=== PATIENT | female | born 1995 | race Caucasian/White ===

== ENCOUNTER 2017-12-24 15:14 | Outpatient (CLI) | payer OTHER | END 2017-12-24 15:15 | disposition home or self-care (01) | LOC: LAB 15:14 | PROVIDERS: ATTEND Registered Nurse | DX: E04.0 Nontoxic diffuse goiter (principal) | CPT/HCPCS: 36415; 84443 ==

== ENCOUNTER 2018-01-05 13:00 | Outpatient (CLI) | payer OTHER ==
--- NOTE | 2018-01-05 15:18 | Ultrasound Report ---
Reason: NONTOXIC DIFFUSE GIOITER Procedure Date: 01/05/2018 Accession Number: [id number] / [id number] Procedure: US - Head or Neck Soft Tissue CPT Code: FULL RESULT: EXAM: THYROID ULTRASOUND EXAM DATE: 01/05/2018 01:25 PM. CLINICAL HISTORY: Enlarged thyroid gland on physical exam. COMPARISON: None. TECHNIQUE: Real time sonographic imaging of the thyroid was performed by the job recruiter. Multiple charter representative static images were saved for review. FINDINGS: THYROID GLAND: Right Lobe: 4.7 x 1.3 x 1.7 cm, volume 5.4 cc. Normal background echotexture. Right Lobe Nodules: None. Left Lobe: 4.7 x 1.0 x 1.6 cm, volume 3.9 cc. Normal background echotexture. Left Lobe Nodules: None. Isthmus: 0.3 cm AP. Isthmic Nodules: None. LYMPH NODES: Prominent bilateral sub-mandibular lymph nodes with normal fatty cristina measuring 3.1 x 0.9 x 1.7 cm on the right and 2.8 x 0.8 x 2.0 cm on the left. OTHER: None. IMPRESSION: 1. Normal thyroid gland. 2. Prominent nonenlarged bilateral submandibular lymph nodes with normal morphology. Management recommendations are based on 2015 [place] [employer] Management Guidelines for Adult Patients with Thyroid Nodules and Differentiated Thyroid Cancer. RADIA
== END 2018-01-05 13:01 | disposition home or self-care (01) ==
LOC: DI 13:00
PROVIDERS: ATTEND Registered Nurse
DX: E04.0 Nontoxic diffuse goiter (principal)
CPT/HCPCS: 76536

== ENCOUNTER 2020-11-18 07:00 | Outpatient (CLI) | payer OTHER ==
[2020-11-18 15:49] LABS: BILIRUBIN,URINE NEGATIVE (NEGATIVE); GLUCOSE, URINE (UA) NEGATIVE (NEGATIVE); KETONES,URINE (UA) NEGATIVE (NEGATIVE); LEUKOCYTE ESTERASE, URINE TRACE (NEGATIVE); NITRITE,URINE NEGATIVE (NEGATIVE); OCCULT BLOOD,URINE TRACE-INTA (NEGATIVE); PH,URINE 6.5 PH (5.0-7.5); PROTEIN,URINE NEGATIVE (NEGATIVE); UROBILINOGEN,URINE 0.2 (NORMAL) E.U./dL (NORMAL)
[2020-11-18 16:00] LABS: BACTERIA,URINE Few /HPF (None Seen); CLARITY,URINE HAZY (CLEAR); RBC,URINE 0-5 /HPF (0-5); SQUAMOUS EPITHELIAL CELL,UR MANY Squamous (<= Few)
== END 2020-11-18 23:59 | disposition home or self-care (01) ==
LOC: LAB 07:00
PROVIDERS: ATTEND Obstetrics & Gynecology
DX: Z32.01 Encounter for pregnancy test, result positive (principal)
CPT/HCPCS: 81001; 87086

== ENCOUNTER 2020-11-27 07:46 | Outpatient (CLI) | payer OTHER ==
--- NOTE | 2020-11-27 12:42 | Ultrasound Report ---
PROCEDURE: OB First Trimester w/TV INDICATIONS: POSITIVE TEST OUTSIDE/PRIOR DATING DATA: Last menstrual period (LMP): 09/27/2020. LMP-based estimated date of delivery (JAZMINE): 07/04/2021. First dating scan (date and location): Today. Estimated date of delivery (JAZMINE) from first dating scan: 07/08/2021. The below data below was generated using the LMP JAZMINE of 07/04/2021 TECHNIQUE: Real-time scanning was performed of the fetus and maternal pelvic organs, with image documentation. Endovaginal scanning was also performed to better visualize the fetus and maternal ovaries. COMPARISON: None FINDINGS: Embryo: There is a single living intrauterine . There is a pole and yolk sac measurin g 3.3 mm. [place]-rump length measures 1.7 cm corresponds to 8 weeks 1 day. Mean gestational sac diamet er is not reportedly given greater sensitivity of crown-rump length at this gestation. No significant perigestational hemorrhage. Heart rate: 169 beats per minute Measurement variability in dating: +/- 4 weeks by LMP, +/- 7 days by mean sac diameter (use before 6 weeks gestation if crown-rump length not able to be measured), +/- 5 days by crown-rump length (6-12 weeks gestation). Maternal organs: Ovaries are normal in size and appearance. There is a 1.0 cm cystic lesion likely re presenting a corpus luteal cyst within the right ovary. The cervix is closed. Nabothian cysts. IMPRESSION: Single living intrauterine with heart rate of 169 bpm measuring 8 weeks 1 day by [place] n-rump length. Estimated date of delivery of 07/04/2021. Reviewed by: Jayme Edgar DO on 11/27/2020 11:41 AM RUBENS Approved by: Jayme Edgar DO on 11/27/2020 11:41 AM RUBENS Station ID: [id number]
== END 2020-11-27 07:47 | disposition home or self-care (01) ==
LOC: DI 07:46
PROVIDERS: ATTEND Obstetrics & Gynecology
DX: Z32.01 Encounter for pregnancy test, result positive (principal)

== ENCOUNTER 2020-12-02 14:32 | Outpatient (CLI) | payer OTHER ==
[2020-12-02 20:43] LABS: BASOPHILS % (AUTO) 0.3 %; EOSINOPHILS # (AUTO) 0.1 10^3/uL (0.0-0.7); EOSINOPHILS % (AUTO) 0.7 %; HCT - HEMATOCRIT 39.3 % (37.0-47.0); HGB - HEMOGLOBIN 13.1 g/dL (12.0-16.0); LYMPHOCYTES # (AUTO) 2.7 10^3/uL (1.5-3.5); LYMPHOCYTES % (AUTO) 29.2 %; MEAN CORPUSCULAR HEMOGLOBIN 30.3 pg (27.0-31.0); MEAN CORPUSCULAR HGB CONC 33.3 g/dL (32.0-36.0); MEAN PLATELET VOLUME 9.4 fL (7.9-10.8); MONOCYTES # (AUTO) 0.6 10^3/uL (0.0-1.0); MONOCYTES % (AUTO) 6.3 %; NEUTROPHILS # (AUTO) 5.8 10^3/uL (1.5-6.6); NEUTROPHILS % (AUTO) 63.2 %; PLT - PLATELET COUNT 323 10^3/uL (130-450); RED BLOOD COUNT 4.32 10^6/uL (4.20-5.40); RED CELL DISTRIBUTION WIDTH 11.9 % (12.0-15.0); WHITE BLOOD COUNT 9.1 x10^3/uL (4.8-10.8)
[2020-12-05 17:11] LABS: HIV AG/AB 4TH GEN NON-REACTIVE (NON-REACTIVE)
[2020-12-05 19:22] LABS: HEPATITIS B SURFACE ANTIGEN NON-REACTIVE (NON-REACTIVE); HEPATITIS C ANTIBODY NON-REACTIVE (NON-REACTIVE)
== END 2020-12-02 14:33 | disposition home or self-care (01) ==
LOC: LAB.S 14:32
PROVIDERS: ATTEND Obstetrics & Gynecology
DX: Z36.89 Encounter for other specified antenatal screening (principal)
CPT/HCPCS: 36415; 85025; 86592; 86762; 86787; 86803; 86850; 86900; 86901; 87340; 87389

== ENCOUNTER 2021-02-14 16:24 | Outpatient (CLI) | payer OTHER ==
--- NOTE | 2021-02-15 14:12 | Ultrasound Report ---
PROCEDURE: OB Detailed Eval INDICATIONS: SUPERVISION OF OUTSIDE/PRIOR DATING DATA: Last menstrual period (LMP): 09/27/2020. LMP-based estimated date of delivery (JAZMINE): 07/04/2021. First dating scan (date and location): 11/27/2020. Estimated date of delivery (JAZMINE) from first dating scan: 07/08/2021. The below data below was generated using the ultrasound JAZMINE of 07/08/2021 TECHNIQUE: Real-time scanning was performed of the fetus, with image documentation and biometric measurements. Endovaginal scanning: Not performed COMPARISON: 11/27/2020 FINDINGS: General: A single living intrauterine gestation is present. Presentation: Vertex Placenta: Placental position is fundal, without previa. Amniotic fluid index: 16.5 cm, normal for gestational age. Largest pocket 5.1 cm. heart rate: 144 beats per minute. Maternal cervical canal: 4.3 cm long; normal length is 2.5 cm or more. biometrics: Biparietal diameter: 4.5 cm, 19 weeks 5 days Head circumference: 16.58 cm, 19 weeks 2 days Abdominal circumference: 14.57 cm, 19 weeks 6 days Femur length: 3.1 cm, 19 weeks 5 days Estimated gestational age from initial scan: 19 weeks 3 days. Composite gestational age from present scan: 19 weeks 3 days Estimated weight and percentile: 309 g, 63rd percentile Measurement variability in biometric dating: +/- 10 days from 12-20 weeks gestation, +/- 2 weeks from 20-30 weeks gestation, +/- 3 weeks at 30 weeks gestation or later. Anatomic survey: Neuro: Ventricles are normal at less than 10 mm. Cisterna magna is normal at 3-11 mm. Cerebellum i s normal in size and morphology. Nuchal skin fold: Normal at less than 6 mm between 14 and 20 weeks gestational age. Face: Nose and lips, facial profile are normal. Spine: Suboptimally visualized. Heart: Suboptimally visualized. Diaphragm: Diaphragm is intact. Stomach: Left-sided stomach is present. Kidneys: No hydronephrosis. Normal is less than 5 mm in 2nd trimester, less than 7 mm in 3rd trimester. Cord: 3 vessel cord has orthotopic insertion. Bladder: Normal in size. Extremities: All 4 extremities are visualized. IMPRESSION: 1. [place] living intrauterine at 19 weeks 3 days based on today's ultrasound. This is co ncordant with the first trimester ultrasound. There is expected interval growth. 2. Normal placenta and amniotic fluid. 3. spine and heart are not well seen. Otherwise anatomy is normal in appearance. Recommend follow-up OB ultrasound. Reviewed by: Ismael Casey MD on 02/15/2021 2:10 PM PST Approved by: Ismael Casey MD on 02/15/2021 2:10 PM PST Station ID: [id number]
== END 2021-02-14 16:25 | disposition home or self-care (01) ==
LOC: DI 16:24
PROVIDERS: ATTEND Obstetrics & Gynecology
DX: Z34.90 Encounter for supervision of normal pregnancy, unspecified, unspecified trimester (principal)

== ENCOUNTER 2021-03-25 07:20 | Outpatient (CLI) | payer OTHER ==
--- NOTE | 2021-03-25 14:44 | Ultrasound Report ---
PROCEDURE: OB F/U or Repeat INDICATIONS: SUPERVISION OF OUTSIDE/PRIOR DATING DATA: Last menstrual period (LMP): 09/27/2020. LMP-based estimated date of delivery (JAZMINE): 07/04/2021. First dating scan (date and location): 11/27/2020. Estimated date of delivery (JAZMINE) from first dating scan: 07/08/2021. TECHNIQUE: Real-time scanning was performed of the fetus, with image documentation and biometric measurements. Endovaginal scanning: None COMPARISON: 02/14/2021 FINDINGS: General: A single living intrauterine gestation is present. Presentation: Variable Placenta: Placental position is posterior, without previa. Amniotic fluid index: 20.7 cm, normal for gestational age. heart rate: 136 beats per minute. heart rate irregularity noted on cine clips Maternal cervical canal: 4.5 cm long; normal length is 2.5 cm or more. Four-chamber heart, right and left ventricular outflow track and spine on the normal in appeara nce. Remainder the visualized anatomy is within normal limits as well. IMPRESSION: 1. Single live intrauterine consistent with 25 week 0 day gestation 2. spine and anatomic aspects of the heart are within normal limits. 3. An irregular heart rate was noted during the exam. Consider follow-up dedicated echoca rdiogram Reviewed by: Coy Garcia MD on 03/25/2021 1:43 PM AK Approved by: Coy Garcia MD on 03/25/2021 1:43 PM AK Station ID: [id number]
== END 2021-03-25 07:21 | disposition home or self-care (01) ==
LOC: DI 07:20
PROVIDERS: ATTEND Obstetrics & Gynecology
DX: O36.8320 Maternal care for abnormalities of the fetal heart rate or rhythm, second trimester, not applicable or unspecified (principal); Z3A.25 25 weeks gestation of pregnancy

== ENCOUNTER 2021-04-08 09:26 | Outpatient (CLI) | payer OTHER | END 2021-04-08 09:27 | disposition home or self-care (01) | LOC: LAB.N 09:26 | PROVIDERS: ATTEND Obstetrics & Gynecology | DX: Z34.90 Encounter for supervision of normal pregnancy, unspecified, unspecified trimester (principal) | CPT/HCPCS: 36415; 82950 ==

== ENCOUNTER 2022-06-13 15:44 | Outpatient (CLI) | payer OTHER ==
[2022-06-13 15:58] LABS: BASOPHILS % (AUTO) 0.2 %; EOSINOPHILS # (AUTO) 0.1 10^3/uL (0.0-0.7); EOSINOPHILS % (AUTO) 1.2 %; HCT - HEMATOCRIT 39.5 % (37.0-47.0); HGB - HEMOGLOBIN 13.3 g/dL (12.0-16.0); LYMPHOCYTES # (AUTO) 2.4 10^3/uL (1.5-3.5); LYMPHOCYTES % (AUTO) 28.8 %; MEAN CORPUSCULAR HEMOGLOBIN 29.5 pg (27.0-31.0); MEAN CORPUSCULAR HGB CONC 33.7 g/dL (32.0-36.0); MEAN CORPUSCULAR VOLUME 87.6 fL (81.0-99.0); MEAN PLATELET VOLUME 9.3 fL (7.9-10.8); MONOCYTES # (AUTO) 0.5 10^3/uL (0.0-1.0); MONOCYTES % (AUTO) 5.8 %; NEUTROPHILS # (AUTO) 5.2 10^3/uL (1.5-6.6); NEUTROPHILS % (AUTO) 63.8 %; PLT - PLATELET COUNT 297 10^3/uL (130-450); RED BLOOD COUNT 4.51 10^6/uL (4.20-5.40); RED CELL DISTRIBUTION WIDTH 12.9 % (12.0-15.0); WHITE BLOOD COUNT 8.2 x10^3/uL (4.8-10.8)
[2022-06-14 11:10] LABS: VARICELLA-ZOSTER AB IGG 887 index (Immune >165)
[2022-06-14 15:08] LABS: HBsAG SCREEN Negative (Negative)
[2022-06-15 00:08] LABS: HCV AB Non Reactive (Non Reactive); HIV SCREEN 4TH GENERATION Non Reactive (Non Reactive)
[2022-06-15 06:10] LABS: RPR Non Reactive (Non Reactive)
== END 2022-06-13 15:45 | disposition home or self-care (01) ==
LOC: LAB 15:44
PROVIDERS: ATTEND Nurse Practitioner Obstetrics & Gynecology
DX: O99.210 Obesity complicating pregnancy, unspecified trimester (principal); Z36.89 Encounter for other specified antenatal screening
CPT/HCPCS: 36415; 85025; 86592; 86762; 86787; 86803; 86850; 86900; 86901; 87340; 87389

== ENCOUNTER 2022-07-29 10:12 | Emergency (ER) | payer OTHER ==
--- NOTE | 2022-07-29 10:40 | ED Physician Documentation ---
PD HPI FEMALE - Stated complaint Stated Complaint: FEMALE - Chief complaint Chief Complaint: Abd Pain - History obtained from History obtained from: Patient - History of Present Illness Timing - onset: Today Timing - details: Abrupt onset, Still present Associated symptoms: Dysuria (mild), Hematuria. No: Fever, Vaginal discharge, Genital sore/lesion Contributing factors: (17 weeks), Other (denies recent intercourse.). No: Exposed to STD Similar symptoms before: Has not had sx before Review of Systems Constitutional: denies: Fever, Chills : denies: Discharge Musculoskeletal: denies: Back pain PD PAST MEDICAL HISTORY - Past Medical History Cardiovascular: None Respiratory: None - Present Medications Home Medications: Ambulatory Orders Medication Instructions Recorded Confirmed cephALEXin [Keflex] 500 mg PO TID 6 Days #18 cap 07/29/22 - Allergies Allergies/Adverse Reactions: Allergies Allergy/AdvReac Type Severity Reaction Status Date / Time No Known Drug Allergies Allergy Verified 07/29/22 10:18 PD ED PE NORMAL - Vitals Vital signs reviewed: Yes - General General: Alert and oriented X 3, No acute distress, Well developed/nourished - Abdomen Abdomen: Soft, Non tender, Non distended, Other (gravid with fundus just below umbilicus. ) - Female Female : Other (bedside U/S by me showing normal IUP for dates, with movement, heart beat, and position. ) Results - Vitals Vitals: Vital Signs - 24 hr 07/29/22 07/29/22 10:19 11:47 Temperature 36.5 C 36.5 C Heart Rate 75 72 Respiratory 16 16 Rate Blood Pressure 132/79 H 128/80 O2 Saturation 97 98 Oxygen O2 Source Room air - Labs Labs: Laboratory Tests 07/29/22 10:30 Urine Color LT RED Urine Clarity SL. CLOUDY Urine pH 8.0 H Ur Specific [place] 1.015 Urine Protein TRACE Urine Glucose (UA) NEGATIVE Urine Ketones TRACE Urine Occult Blood LARGE H Urine Nitrite NEGATIVE Urine Bilirubin NEGATIVE Urine Urobilinogen 0.2 (NORMAL) Ur Leukocyte Esterase TRACE H Urine RBC TNTC H Urine WBC 6-10 H Ur Squamous Epith Cells FEW Squamous Urine Bacteria Few Ur Microscopic Review INDICATED Urine Culture Comments INDICATED PD Medical Decision Making - ED course Complexity details: reviewed results (UA showing some blood, leuks and bacteria. Enough c/w UTI to treat. Bedside U/S showing normal IUP features with movement, heart beat, positon. ), considered differential, d/w patient Departure - Departure Disposition: 01 Home, Self Care Clinical Impression: Hematuria Qualifiers: Hematuria type: gross Qualified Code(s): R31.0 - Gross hematuria Qualifiers: Weeks of gestation: 17 weeks Qualified Code(s): Z3A.17 - 17 weeks gestation of UTI (urinary tract infection) Qualifiers: Urinary tract infection type: acute cystitis Hematuria presence: with hematuria Qualified Code(s): N30.01 - Acute cystitis with hematuria Condition: Stable Record reviewed to determine appropriate education?: Yes Instructions: ED UTI Cystitis Female Prescriptions: cephALEXin [Keflex] 500 mg PO TID 6 Days #18 cap Comments: Your urine sample does look consistent with a infection including some bacteria and white cells in addition to the blood. We can treated as a UTI with cephalexin 3 times daily for the next 6 days. This is safe in . Stay well-hydrated. If you have discomfort with urination, you can use Tylenol and/or ibuprofen at this point in . Tylenol is good through all of . Typically the consensus is no ibuprofen or NSAIDs after approximately 20 weeks of . Recheck if not improving well over the next few days. The bedside ultrasound here showed normal activity and heartbeat and positioning of your baby. I sent your prescription to [facility] in [place]. Discharge Date/Time: 07/29/22 11:47
--- OUTSIDE RECORDS SUMMARY | 2022-07-29 11:11 | EXTERNAL MEDICAL SUMMARY RPT | Continuity of Care Document ---
Author Name Unknown Address [address] [place] [address] Phone Organization [facility] Address [address] [place] [address] Phone Care Team Providers Care Gill Box Operator Name Role Phone Unavailable Unavailable Unavailable Joo, Provider Unavailable Unavailable Medications date description facility 2022-06-13 00:00 digoxin All 2022-06-14 00:00 digoxin All 2022-06-15 00:00 digoxin All 2022-06-13 00:00 digoxin All 2022-06-14 00:00 digoxin All 2022-06-15 00:00 digoxin All 2022-06-13 00:00 digoxin All 2022-06-14 00:00 digoxin All 2022-06-15 00:00 digoxin All 2022-06-13 00:00 digoxin All 2022-06-14 00:00 digoxin All 2022-06-15 00:00 digoxin All Results/Labs test date author facility value unit interpretation Result panel 1 (unknown) (no date) (unknown) All (no value) (units unknown) (unknown) Result panel 2 (unknown) (no date) (unknown) All (no value) (units unknown) (unknown) Result panel 3 (unknown) (no date) (unknown) All (no value) (units unknown) (unknown) Result panel 4 (unknown) (no date) (unknown) All (no value) (units unknown) (unknown) Result panel 5 (unknown) (no date) (unknown) All (no value) (units unknown) (unknown) Result panel 6 (unknown) (no date) (unknown) All (no value) (units unknown) (unknown) Result panel 7 (unknown) (no date) (unknown) All (no value) (units unknown) (unknown) Result panel 8 (unknown) (no date) (unknown) All (no value) (units unknown) (unknown) Result panel 9 (unknown) (no date) (unknown) All (no value) (units unknown) (unknown) Result panel 10 (unknown) (no date) (unknown) All (no value) (units unknown) (unknown) Result panel 11 (unknown) (no date) (unknown) All (no value) (units unknown) (unknown) Result panel 12 (unknown) (no date) (unknown) All (no value) (units unknown) (unknown) Result panel 13 (unknown) (no date) (unknown) All (no value) (units unknown) (unknown) Result panel 14 (unknown) (no date) (unknown) All (no value) (units unknown) (unknown) Result panel 15 (unknown) (no date) (unknown) All (no value) (units unknown) (unknown) Result panel 16 (unknown) (no date) (unknown) All (no value) (units unknown) (unknown) Result panel 17 (unknown) (no date) (unknown) All (no value) (units unknown) (unknown) Result panel 18 (unknown) (no date) (unknown) All (no value) (units unknown) (unknown) Result panel 19 (unknown) (no date) (unknown) All (no value) (units unknown) (unknown) Result panel 20 (unknown) (no date) (unknown) All (no value) (units unknown) (unknown) Result panel 21 (unknown) (no date) (unknown) All (no value) (units unknown) (unknown) Result panel 22 (unknown) (no date) (unknown) All (no value) (units unknown) (unknown) Result panel 23 (unknown) (no date) (unknown) All (no value) (units unknown) (unknown) Result panel 24 (unknown) (no date) (unknown) All (no value) (units unknown) (unknown) Result panel 25 (unknown) (no date) (unknown) All (no value) (units unknown) (unknown) Result panel 26 (unknown) (no date) (unknown) All (no value) (units unknown) (unknown) Result panel 27 (unknown) (no date) (unknown) All (no value) (units unknown) (unknown) Result panel 28 (unknown) (no date) (unknown) All (no value) (units unknown) (unknown) Result panel 29 (unknown) (no date) (unknown) All (no value) (units unknown) (unknown) Result panel 30 (unknown) (no date) (unknown) All (no value) (units unknown) (unknown) Result panel 31 (unknown) (no date) (unknown) All (no value) (units unknown) (unknown) Result panel 32 (unknown) (no date) (unknown) All (no value) (units unknown) (unknown) Result panel 33 (unknown) (no date) (unknown) All (no value) (units unknown) (unknown) Result panel 34 (unknown) (no date) (unknown) All (no value) (units unknown) (unknown) Result panel 35 (unknown) (no date) (unknown) All (no value) (units unknown) (unknown) Result panel 36 (unknown) (no date) (unknown) All (no value) (units unknown) (unknown) Result panel 37 (unknown) (no date) (unknown) All (no value) (units unknown) (unknown) Result panel 38 (unknown) (no date) (unknown) All (no value) (units unknown) (unknown) Result panel 39 (unknown) (no date) (unknown) All (no value) (units unknown) (unknown) Result panel 40 (unknown) (no date) (unknown) All (no value) (units unknown) (unknown) Result panel 41 (unknown) (no date) (unknown) All (no value) (units unknown) (unknown) Result panel 42 (unknown) (no date) (unknown) All (no value) (units unknown) (unknown) Result panel 43 (unknown) (no date) (unknown) All (no value) (units unknown) (unknown) Result panel 44 (unknown) (no date) (unknown) All (no value) (units unknown) (unknown) Result panel 45 (unknown) (no date) (unknown) All (no value) (units unknown) (unknown) Result panel 46 (unknown) (no date) (unknown) All (no value) (units unknown) (unknown) Result panel 47 (unknown) (no date) (unknown) All (no value) (units unknown) (unknown) Result panel 48 (unknown) (no date) (unknown) All (no value) (units unknown) (unknown) Result panel 49 (unknown) (no date) (unknown) All (no value) (units unknown) (unknown) Result panel 50 (unknown) (no date) (unknown) All (no value) (units unknown) (unknown) Result panel 51 (unknown) (no date) (unknown) All (no value) (units unknown) (unknown) Result panel 52 (unknown) (no date) (unknown) All (no value) (units unknown) (unknown) Result panel 53 (unknown) (no date) (unknown) All (no value) (units unknown) (unknown) Result panel 54 (unknown) (no date) (unknown) All (no value) (units unknown) (unknown) Result panel 55 (unknown) (no date) (unknown) All (no value) (units unknown) (unknown) Result panel 56 (unknown) (no date) (unknown) All (no value) (units unknown) (unknown) Result panel 57 (unknown) (no date) (unknown) All (no value) (units unknown) (unknown) Result panel 58 (unknown) (no date) (unknown) All (no value) (units unknown) (unknown) Result panel 59 (unknown) (no date) (unknown) All (no value) (units unknown) (unknown) Result panel 60 (unknown) (no date) (unknown) All (no value) (units unknown) (unknown) Result panel 61 (unknown) (no date) (unknown) All (no value) (units unknown) (unknown) Result panel 62 (unknown) (no date) (unknown) All (no value) (units unknown) (unknown) Result panel 63 (unknown) (no date) (unknown) All (no value) (units unknown) (unknown) Result panel 64 (unknown) (no date) (unknown) All (no value) (units unknown) (unknown) Result panel 65 (unknown) (no date) (unknown) All (no value) (units unknown) (unknown) Result panel 66 (unknown) (no date) (unknown) All (no value) (units unknown) (unknown) Result panel 67 (unknown) (no date) (unknown) All (no value) (units unknown) (unknown) Result panel 68 (unknown) (no date) (unknown) All (no value) (units unknown) (unknown) Result panel 69 (unknown) (no date) (unknown) All (no value) (units unknown) (unknown) Result panel 70 (unknown) (no date) (unknown) All (no value) (units unknown) (unknown) Result panel 71 (unknown) (no date) (unknown) All (no value) (units unknown) (unknown) Result panel 72 (unknown) (no date) (unknown) All (no value) (units unknown) (unknown) Result panel 73 (unknown) (no date) (unknown) All (no value) (units unknown) (unknown) Result panel 74 (unknown) (no date) (unknown) All (no value) (units unknown) (unknown) Result panel 75 (unknown) (no date) (unknown) All (no value) (units unknown) (unknown) Result panel 76 (unknown) (no date) (unknown) All (no value) (units unknown) (unknown) Result panel 77 (unknown) (no date) (unknown) All (no value) (units unknown) (unknown) Result panel 78 (unknown) (no date) (unknown) All (no value) (units unknown) (unknown) Result panel 79 (unknown) (no date) (unknown) All (no value) (units unknown) (unknown) Result panel 80 (unknown) (no date) (unknown) All (no value) (units unknown) (unknown) Result panel 81 (unknown) (no date) (unknown) All (no value) (units unknown) (unknown) Result panel 82 (unknown) (no date) (unknown) All (no value) (units unknown) (unknown) Result panel 83 (unknown) (no date) (unknown) All (no value) (units unknown) (unknown) Result panel 84 (unknown) (no date) (unknown) All (no value) (units unknown) (unknown) Result panel 85 (unknown) (no date) (unknown) All (no value) (units unknown) (unknown) Result panel 86 (unknown) (no date) (unknown) All (no value) (units unknown) (unknown) Result panel 87 (unknown) (no date) (unknown) All (no value) (units unknown) (unknown) Result panel 88 (unknown) (no date) (unknown) All (no value) (units unknown) (unknown) Result panel 89 (unknown) (no date) (unknown) All (no value) (units unknown) (unknown) Result panel 90 (unknown) (no date) (unknown) All (no value) (units unknown) (unknown) Result panel 91 (unknown) (no date) (unknown) All (no value) (units unknown) (unknown) Result panel 92 (unknown) (no date) (unknown) All (no value) (units unknown) (unknown) Result panel 93 (unknown) (no date) (unknown) All (no value) (units unknown) (unknown) Result panel 94 (unknown) (no date) (unknown) All (no value) (units unknown) (unknown) Result panel 95 (unknown) (no date) (unknown) All (no value) (units unknown) (unknown) Result panel 96 (unknown) (no date) (unknown) All (no value) (units unknown) (unknown) Result panel 97 (unknown) (no date) (unknown) All (no value) (units unknown) (unknown) Result panel 98 (unknown) (no date) (unknown) All (no value) (units unknown) (unknown) Result panel 99 (unknown) (no date) (unknown) All (no value) (units unknown) (unknown) Result panel 100 (unknown) (no date) (unknown) All (no value) (units unknown) (unknown) Result panel 101 (unknown) (no date) (unknown) All (no value) (units unknown) (unknown) Result panel 102 (unknown) (no date) (unknown) All (no value) (units unknown) (unknown) Result panel 103 (unknown) (no date) (unknown) All (no value) (units unknown) (unknown) Result panel 104 (unknown) (no date) (unknown) All (no value) (units unknown) (unknown) Result panel 105 (unknown) (no date) (unknown) All (no value) (units unknown) (unknown) Result panel 106 (unknown) (no date) (unknown) All (no value) (units unknown) (unknown) Result panel 107 (unknown) (no date) (unknown) All (no value) (units unknown) (unknown)
[2022-07-29 11:22] LABS: BILIRUBIN,URINE NEGATIVE (NEGATIVE); GLUCOSE, URINE (UA) NEGATIVE (NEGATIVE); KETONES,URINE (UA) TRACE mg/dL (NEGATIVE); LEUKOCYTE ESTERASE, URINE TRACE (NEGATIVE); NITRITE,URINE NEGATIVE (NEGATIVE); OCCULT BLOOD,URINE LARGE (NEGATIVE); PROTEIN,URINE TRACE mg/dL (NEGATIVE); UROBILINOGEN,URINE 0.2 (NORMAL) E.U./dL (NORMAL)
[2022-07-29 11:28] LABS: CLARITY,URINE SL. CLOUDY (CLEAR)
[2022-07-29 11:34] LABS: BACTERIA,URINE Few /HPF (None Seen); RBC,URINE TNTC /HPF (0-5); SQUAMOUS EPITHELIAL CELL,UR FEW Squamous (<= Few)
[2022-07-29] MEDS ORDERED: cephALEXin 250 MG CAPSULE PO STA (11:41)
[2022-07-29 11:53] VITALS: BP 128/80
== END 2022-07-29 11:47 | disposition home or self-care (01) ==
LOC: ED 10:12
DX: O23.12 Infections of bladder in pregnancy, second trimester (principal); N30.91 Cystitis, unspecified with hematuria; Z3A.17 17 weeks gestation of pregnancy
CPT/HCPCS: 81001; 87086; 87181; 99283; A9270; 81003

== ENCOUNTER 2022-08-20 13:14 | Outpatient (CLI) | payer OTHER ==
--- NOTE | 2022-08-20 15:46 | Ultrasound Report ---
PROCEDURE: OB Detailed Eval INDICATIONS: SUPERVISION OF OUTSIDE/PRIOR DATING DATA: Last menstrual period (LMP): 04/02/2022. LMP-based estimated date of delivery (JAZMINE): 01/07/2023. First dating scan (date and location): 08/20/2022. Estimated date of delivery (JAZMINE) from first dating scan: 01/07/2023. The below data below was generated using the sonographic JAZMINE of 01/07/2023 TECHNIQUE: Real-time scanning was performed of the fetus, with image documentation and biometric measurements. Endovaginal scanning: Not performed COMPARISON: None. FINDINGS: General: A single living intrauterine gestation is present. Presentation: Variable Placenta: Placental position is anterior, without previa. Amniotic fluid index: 14.7 cm, largest pocket is 5.1 cm. Normal for gestational age. heart rate: 166 beats per minute. Maternal cervical canal: Closed and 3.7cm long; normal length is 2.5 cm or more. biometrics: Biparietal diameter: 4.7 cm, 20 weeks 1 day Head circumference: 17.7 cm, 20 weeks 1 day Abdominal circumference: 15.3 cm, 20 weeks 4 days Femur length: 3.2 cm, 19 weeks 6 days Estimated gestational age from initial scan: 20 weeks 0 days Composite gestational age from present scan: 20 weeks 0 days Estimated weight and percentile: 338 g, 56th percentile Measurement variability in biometric dating: +/- 10 days from 12-20 weeks gestation, +/- 2 weeks from 20-30 weeks gestation, +/- 3 weeks at 30 weeks gestation or later. Anatomic survey: Neuro: Ventricles are normal at less than 10 mm. Cisterna magna is normal at 3-11 mm. Cerebellum i s normal in size and morphology. Nuchal skin fold: Normal at less than 6 mm between 14 and 20 weeks gestational age. Face: Nose and lips, facial profile are normal. Spine: No evidence for spina bifida. Heart: 4-chambered heart is present, with normal ventricular outflow tracts. Diaphragm: Diaphragm is intact. Stomach: Left-sided stomach is present. Kidneys: No hydronephrosis. Normal is less than 5 mm in 2nd trimester, less than 7 mm in 3rd trimester. Cord: 3 vessel cord has orthotopic insertion. Bladder: Normal in size. Extremities: All 4 extremities are visualized. IMPRESSION: 1. Single living intrauterine with symmetric and appropriate growth. 2. Normal anatomy. 3. Normal amniotic fluid volume. 4. Estimated weight at the 56th percentile. Reviewed by: Laura Mcwilliams MD on 08/20/2022 2:45 PM AKYULIA Approved by: Laura Mcwilliams MD on 08/20/2022 2:45 PM AKYULIA Station ID: [id number]
== END 2022-08-20 13:15 | disposition home or self-care (01) ==
LOC: DI 13:14
PROVIDERS: ATTEND Nurse Practitioner Obstetrics & Gynecology
DX: Z34.02 Encounter for supervision of normal first pregnancy, second trimester (principal); Z36.89 Encounter for other specified antenatal screening

== ENCOUNTER 2022-10-16 08:01 | Outpatient (CLI) | payer OTHER ==
[2022-10-16 08:56] LABS: GTT GLUCOSE,FASTING 90 mg/dL (74-109)
[2022-10-16 10:45] LABS: HCT - HEMATOCRIT 35.7 % (37.0-47.0); MEAN CORPUSCULAR HEMOGLOBIN 29.6 pg (27.0-31.0); MEAN CORPUSCULAR HGB CONC 33.6 g/dL (32.0-36.0); MEAN CORPUSCULAR VOLUME 88.1 fL (81.0-99.0); MEAN PLATELET VOLUME 9.5 fL (7.9-10.8); RED BLOOD COUNT 4.05 10^6/uL (4.20-5.40); RED CELL DISTRIBUTION WIDTH 13.4 % (12.0-15.0); WHITE BLOOD COUNT 7.8 x10^3/uL (4.8-10.8)
== END 2022-10-16 08:02 | disposition home or self-care (01) ==
LOC: LAB 08:01
PROVIDERS: ATTEND Nurse Practitioner Obstetrics & Gynecology
DX: Z36.9 Encounter for antenatal screening, unspecified (principal)
CPT/HCPCS: 36415; 82951; 85027